=== PATIENT | female | born 1970 | race African-American/Black ===

== ENCOUNTER → 2018-07-21 | Outpatient (CLI) | payer OTHER ==
[~2018-07-21] VITALS: Ht 170.2 cm; Wt 79.4 kg
[~2018-07-21] MED LIST: ACYCLOVIR 400400 MG PO; CYMBALTA30 MG PO; FYAVOLV 1 MG-51 EACH PO; GABAPENTIN 100100 MG PO; IBUPROFEN 200200 M1 PO; INDERAL60 MG PO; METHOCARBAMOL500 M2 PO; NEURONTIN 300300 M1 PO; PREDNISONE 10 M10 MG PO; PRIMIDONE 250M250 M1 PO; PROTONIX40 M1 PO; TRAMADOL 50 MG50 MG PO; ULTRAM 50MG TAB50 MG PO; UNICOMPLEX M TA1 TA1 PO; VITAMIN D2000 UNIT PO; ZANTAC 150MG T150 MG PO; [UNRECOGNIZED DRUG - OTHER] PO
[2018-07-21 10:27] VITALS: BP 127/83
--- NOTE | 2018-07-21 10:37 | NUR ---
Pain Clinic Assessment: 1. History of Osteoarthritis: History of Rheumatoid Arthritis: 2. Height: 5 ft. 7 in. 170.2 cm. Weight: 175.0 lb. oz. 79.380 kg. Patient's BMI: 27.4 3. Vital Signs: BP: 127/83 Pulse: 63 Resp: 16 Temp: 02 Sat: 100 ECG Mon: 4. Pain Intensity: 10 5. Fall Risk: Dizziness: Y Needs help standing or walking: N Fallen in the last 3 months: N Fall risk comments: 6. Patient on Blood Thinner: None 7. History of Hypertension: N 8. Opioid Therapy greater than 6 weeks: Y Opiate Contract Signed: 9. Risk Assessment Tool Provided: LOW 10. Functional Assessment Tool: 11. Recreational Drug Use: Never Drug Type: Tobacco Use: Never Smoker Tobacco Type: Amount or Packs/day: How Many Years: Alcohol Use: Yes Frequency: Weekly Quant: 1
--- NOTE | 2018-07-27 07:52 | HPC ---
[facility] [address] PAIN MANAGEMENT CONSULTATION Name: MYKE MONTANA Room #: REG VANESSA FragaHossein#: [id number] Admission: 07/21/18 ������������������ Attend Phys: Andriy Dunn DO Discharge: ������������������ Date of : 66 Report #: [id number] THIS REPORT FOR: //name// CC: Uri CHAU DATE OF SERVICE: 07/21/2018 CHIEF COMPLAINT: Neck pain. HISTORY OF PRESENT ILLNESS: As you know, the patient is a very pleasant 48-year-old female who reports acute onset of neck pain that presented 07/07/2018. The patient believed initially she may "have pulled some muscles," but began to experience increasing symptoms radiating down the right leg concerning for cervical radiculopathy. The patient did not improve with conservative treatment option. She was subsequently referred for MRI of the cervical spine. In the meantime, the patient was also referred to pain clinic to discuss potential treatment options for suspected cervical radiculopathy. The patient has yet to review her MRI of the cervical spine that was obtained on 07/16/2018 per the request of the referring physician, Dr. Justina Chau. The patient was referred to our clinic and is being seen in consultation today, 07/21/2018. The patient indicates pain is continuous, describes the pain as shooting, pulling, throbbing and sharp, places current pain score at 10/10, daily average of 6-10/10, the worst pain has been at 10/10. The patient states the pain is exacerbated with typing, writing and cold temperatures, improves with lying down. She has been referred to our service to discuss treatment options for suspected cervical radiculopathy. PAST MEDICAL HISTORY: 1. Asthma. 2. Hypothyroidism. 3. Stomach problems. 4. Emotional problems. PAST SURGICAL HISTORY: Splenectomy. SOCIAL HISTORY: The patient denies tobacco, IV or illicit drug use. Admits to approximately 1 alcoholic beverage per week. She is employed as a business call center analyst, but has not worked during the past 10 days due to ongoing neck pain and right upper extremity pain. She is not in litigation in regards to her pain. She is unaccompanied today. [facility] [address] [place] [address] PAIN MANAGEMENT CONSULTATION Name: MYKE MONTANA Sheldon Room #: REG [facility] Flakito.#: [id number] Admission: 07/21/18 ������������������ Attend Phys: Andriy Dunn DO Discharge: ������������������ Date of : 66 Report #: [id number] REVIEW OF SYSTEMS: Positive for weight change, decrease in appetite, fever, night sweats, fatigue and weakness, frequent and recurrent headaches, wearing corrective eyewear, chronic sinus problems with rhinitis, asthma, wheezing, changes in bowel movements, nausea and vomiting, nocturia, numbness and tingling sensations, tremors, nervousness, depression, insomnia, thyroid disease, heat and cold intolerance, bleeding and bruising tendencies. All other review of systems negative per 12-point review of systems other than those listed in history of present illness. Pain impact score 40/70 indicating moderate interference of daily activities secondary to pain. ALLERGIES: No known drug allergies. CURRENT MEDICATIONS: Gabapentin 100 mg p.o. at bedtime, Inderal 60 mg once a day, ranitidine 150 mg once a day, cholecalciferol 2000 units once a day, multivitamin 1 tab per day, duloxetine 30 mg once a day, prednisone 10 mg once a day, tramadol 50 mg p.o. q. 6 hours p.r.n. for pain, acyclovir 400 mg twice a day, norethindrone 1 mg/5 mcg once a day. IMAGING: MRI cervical spine obtained on 07/16/2018 shows C2-C3 tiny posterior disk protrusion, no central canal or neural foraminal stenosis; C3-C4, tiny posterior disk protrusion, no central canal or neural foraminal stenosis; C4-C5, mild disk osteophyte bulge, no central canal or neural foraminal stenosis; C5-C6, mild disk bulge, no central canal or neural foraminal stenosis; C6-C7, mild disk bulge, no central canal or neural foraminal stenosis. C7-T1, unremarkable. PHYSICAL EXAMINATION: VITAL SIGNS: Blood pressure 127/83, pulse 63, respiratory rate 16 and unlabored. The patient is 100% on room air. Height 5 feet 7 inches tall, weight 175 pounds, BMI calculated at 27.4. GENERAL: Well-developed, well-nourished, well-hydrated 48-year-old female, appearing stated age. She is in no acute distress, awake, alert and oriented x 3. Current pain score is rated at 10/10. HEENT: Normocephalic, atraumatic. Pupils equal, round, reactive to light. Extraocular muscles are intact. Sclerae nonicteric without injection. NEUROLOGIC: Cranial nerves 2-12 grossly intact. Speech fluent. The patient deemed a good historian. LUNGS: Clear, no wheeze, rhonchi or rales. CARDIOVASCULAR: Regular. No appreciable gallop, no rub. ABDOMEN: Soft, nontender, nondistended, normoactive bowel sounds. EXTREMITIES: Show no clubbing, no cyanosis, no edema. MUSCULOSKELETAL: Upper extremity strength appears symmetrical, 5/5. Slight give-way strength noted with use of the right upper extremity secondary to the left due to increasing pain. Muscle bulk and tone is symmetrical in comparing [facility] [address] [place] [address] PAIN MANAGEMENT CONSULTATION Name: MYKE MONTANA ROBI Room #: REG VANESSA Fraga.#: [id number] Admission: 07/21/18 ������������������ Attend Phys: Andriy Dunn DO Discharge: ������������������ Date of : 66 Report #: [id number] left lower extremity to right. Deep tendon reflexes 2+/4, biceps, brachialis and triceps. Spurling's test is negative. Cervical provocation testing is met with flexion and rotation as well as extension of the cervical spine on the right. There is noted palpatory tenderness over the sternocleidomastoid muscles and the other strap muscles of the right cervical region, negative left. Tactile sensation is normal in right upper extremity to light touch. ASSESSMENT: 1. Cervicalgia. 2. Brachial plexopathy. 3. Tension headache. 4. Myofascial pain. PLAN: 1. Based on today's physical exam and history the patient was provided, the description the patient uses in regards to pain as well as the location of symptoms, there was concern the patient was suffering from cervical radiculopathy. I am pleased to advise the patient the MRI of the cervical spine is essentially negative. There is no central canal or neural foraminal stenosis or lateral stenosis that would be the source of the patient's symptoms. The symptom she is experiencing appears to be more related to impingement of the brachial plexus, then a cervical radiculopathy. She has extremely tight musculature of the right cervical area, which would potentially cause compressive forces on the brachial plexus causing the symptoms the patient is experiencing as she does appear to have radicular symptoms, though her MRI is completely normal. I would recommend conservative treatment option initially. If this is ineffective, then look towards possibly having the patient seen by neurology and discuss mild Botox injections into the strap muscles of the right cervical region. 2. We would recommend physical therapy for this patient. We recommend cervical traction ultrasound therapy, moist heat and even possible electrical stimulation to help alleviate the spasming of the cervical musculature on the right. I believe this will resolve the patient's symptoms entirely. This will also gain back some of the mobility the patient has lost since 07/07/2018. We will send the patient for physical therapy 3 times a week for 4 weeks. If the patient sees improvement, she can continue with this activity. If her symptoms resolve completely, she could discontinue. 3. Recommend strongly increasing the gabapentin at this point. This will help with her nerve related symptoms at present that she is experiencing in the right upper extremity. She is taking 100 mg of gabapentin at night, well below a therapeutic dose. We will escalate the dose to 300 mg starting tonight for 1 night, then escalating to 600 mg at night for 3 nights, then 900 mg at night for 3 nights with a rapid titration to reach efficacy versus side effects. She was given enough medication to follow the titration given to her in written form today. She was advised if she notes any side effects of somnolence, decreased mental acuity, disorientation, confusion and mental slowing with use of [address] [id number] PAIN MANAGEMENT CONSULTATION Name: MYKE MONTANA Room #: REG VANESSA Coles#: [id number] Admission: 07/21/18 ������������������ Attend Phys: Andriy Dunn DO Discharge: ������������������ Date of : 66 Report #: [id number] medication, contact our clinic after reducing the dose to the prior dosing where the side effects were not noted. 4. We will add to the patient's medication list a muscle relaxant to help while she is undergoing physical therapy. We have given the patient methocarbamol 500 mg dose 1 tab p.o. b.i.d., I have given the patient #60 tablets, advised not to drive or operate heavy equipment while on the medication. She can utilize the therapy for muscle spasming and this should assist in alleviating some of the strain the patient is experiencing in the cervical spine. This will also help alleviate some of the headache she is experiencing, which appears to be tension related. 5. We wish to thank Dr. Lovelace and Dr. Chau for the referral of the patient to our clinic. I am pleased to advise the patient at this time no interventional treatments or surgical options will be necessary. Conservative treatment would be recommended. I will be able to see the patient back in followup visit on an as needed basis if you request, though I feel that conservative treatment can be handled through your capable services. ��������������������������������������������� <ELECTRONICALLY SIGNED> ���������������������������������������� By: Andriy Dunn DO ��������������������������������������������� 07/27/18 [id number] Andriy Dunn DO /nt
== END ==
LOC: PAIN 06:59
DX: M54.2 Cervicalgia (principal); J45.909 Unspecified asthma, uncomplicated; E03.9 Hypothyroidism, unspecified; R51 Headache; M79.18 Myalgia, other site; Z79.891 Long term (current) use of opiate analgesic